=== PATIENT | female | born 1995 | race Caucasian/White ===

== ENCOUNTER 2018-09-11 18:48 | Emergency (ER) | payer OTHER ==
[2018-09-11 19:38] LABS: URINE BLOOD (Dip) POC Trace-lysed (NEGATIVE); URINE GLUCOSE (Dip) POC Negative (NEGATIVE); URINE KETONES (Dip) POC 3+ (NEGATIVE); URINE LEUKOCYTE EST (Dip) POC 1+ (NEGATIVE); URINE NITRITE (Dip) POC Negative (NEGATIVE); URINE TOTAL PROTEIN POC 2+ (NEGATIVE)
[2018-09-11] MEDS: ONDANSETRON 4 MG INJ IV (19:42)
[2018-09-11] MEDS: SOD CHLORIDE 0.9% 1,000 ML IV (19:42)
[2018-09-11] MEDS: KETOROLAC 30 MG INJ IV (19:50)
[2018-09-11 19:59] LABS: HEMATOCRIT 41.3 % (37.0-47.0); HEMOGLOBIN 13.9 g/dl (12.0-16.0); MEAN CORPUSCULAR HEMOGLOBIN 31.3 pg (29.0-33.0); MEAN CORPUSCULAR HGB CONC 33.7 g/dl (32.0-37.0); MEAN PLATELET VOLUME 10.8 fl (7.4-10.4); PLATELET COUNT 292 10^3/UL (140-415); RED BLOOD COUNT 4.44 10^6/ul (4.20-5.40); RED CELL DISTRIBUTION WIDTH 13.1 % (11.5-14.5)
[2018-09-11 19:59] LABS: WHITE BLOOD COUNT 30.1 10^3/ul (4.8-10.8)
[2018-09-11 20:15] LABS: POSITIVE DIFF @See below
[2018-09-11 20:18] LABS: ALANINE AMINOTRANSFERASE 14 IU/L (13-69); ALBUMIN 4.2 g/dl (3.3-4.9); ALBUMIN/GLOBULIN RATIO 0.93; ALKALINE PHOSPHATASE 91 IU/L (42-121); ANION GAP 18 (5-13); ASPARTATE AMINO TRANSFERASE 20 IU/L (15-46); BLOOD UREA NITROGEN 13 mg/dl (7-20); CALCIUM 10.2 mg/dl (8.4-10.2); CARBON DIOXIDE 22 mmol/L (21-31); CHLORIDE 100 mmol/L (97-110); CREATININE 0.97 mg/dl (0.44-1.00); GLUCOSE 119 mg/dl (70-220); POTASSIUM 3.4 mmol/L (3.5-5.1); SODIUM 140 mmol/L (135-144); TOTAL PROTEIN 8.7 g/dl (6.1-8.1)
[2018-09-11 20:19] LABS: ADD MAN DIFF? YES; PATH REVIEW? YES
[2018-09-11 20:20] LABS: LIPASE < 10 U/L (23-300)
[2018-09-11 20:36] LABS: UR BACTERIA FEW /HPF (NONE SEEN); UR MUCUS FEW /HPF (NONE SEEN); UR RBC 2 /HPF (0-5); UR SQUAMOUS EPITHELIAL CELL FEW /HPF (FEW); UR WBC 32 /HPF (0-5)
[2018-09-11 20:42] LABS: PROTIME 15.4 Sec (11.9-14.9); PT RATIO 1.2
[2018-09-11 20:43] LABS: PARTIAL THROMBOPLASTIN TIME 32.8 Sec (23.0-35.0)
[2018-09-11 20:48] LABS: ADD UMIC YES; UR ASCORBIC ACID NEGATIVE (NEGATIVE); UR BILIRUBIN (Dip) NEGATIVE (NEGATIVE); UR BLOOD (Dip) NEGATIVE (NEGATIVE); UR CLARITY TURBID (CLEAR); UR COLOR AMBER (YELLOW); UR GLUCOSE (Dip) NEGATIVE (NEGATIVE); UR KETONES (Dip) 1+ mg/dL (NEGATIVE); UR LEUKOCYTE ESTERASE (Dip) 1+ Leu/ul (NEGATIVE); UR NITRITE (Dip) NEGATIVE (NEGATIVE); UR SPECIFIC GRAVITY (Dip) 1.023 (1.003-1.030); UR TOTAL PROTEIN (Dip) 2+ mg/dl (NEGATIVE); UR UROBILINOGEN (Dip) NEGATIVE (NEGATIVE)
[2018-09-11 21:08] LABS: BAND NEUTROPHILS #M 9.3 10^3/ul (0.0-0.6); BAND NEUTROPHILS % (M) 31 % (0-4); EOSINOPHILS % (M) 3 % (0-7); GIANT THROMBO% (M) 1 % (0-0); MYELOCYTES #M 0.3 10^3/ul (0.0-0.0); MYELOCYTES % (M) 1 % (0-0); PLATELET ESTIMATE NORMAL; SEG NEUT #M 22.4 10^3/ul (1.6-7.5); SEGMENTED NEUTROPHILS (M) % 65 % (39-77)
[2018-09-11] MEDS: morphine 4 MG/ML VIAL IV ×2 (21:15→23:10)
[2018-09-11 22:17] LABS: INR 1.25; PROTIME 15.9 Sec (11.9-14.9); PT RATIO 1.2
[2018-09-11 22:18] LABS: PARTIAL THROMBOPLASTIN TIME 33.1 Sec (23.0-35.0)
[2018-09-11] MEDS: PIPER-TAZO 3.375 GM IV (PMX) 100 ML IVPB (22:30)
[2018-09-11] MEDS: SODIUM CHLORIDE 0.9% 1L BAG IV* (22:30)
[2018-09-11] MEDS: SOD CHLORIDE 0.9% 100 ML (23:13)
[2018-09-11] MEDS: IOHEXOL 300MG/ML 150 ML BTL (23:14)
== END 2018-09-12 02:41 | disposition short-term general hospital (02) ==
LOC: E/R 09-12 02:41 → FTE 18:48
DX: K35.80 Unspecified acute appendicitis (principal)
CPT/HCPCS: 36415; 74176; 74177; 80053; 81001; 81003; 81025; 83605; 83690; 85025; 85610; 85730; 87040; 96374; 96375; 96376; 99285-25